=== PATIENT | male | born 2000 | race Caucasian/White ===

== ENCOUNTER 2020-08-09 13:05 | Emergency (ER) | payer OTHER, SELFPAY ==
--- NOTE | 2020-08-09 13:20 | ED.SKABFB ---
HPI - Skin/Abscess/Foreign Bdy General Chief complaint: Skin/Abscess/Foreign Body Stated complaint: rash Time Seen by Provider: 08/09/20 13:20 Source: patient Mode of arrival: ambulatory Limitations: no limitations History of Present Illness HPI narrative: Patient is a 20-year-old male who presents complaining of rash to waistband x3 days. Patient reports rash is not itchy or painful. He also has expresses concern of athletes feet to bilateral feet x1 to 2 weeks. He reports that he has not used any new soaps, shampoos, or detergents. He denies fever, cough, or cold-like symptoms. He denies using [id number] topical creams for relief at this time. MD complaint: rash Related Data Allergies Allergy/AdvReac Type Severity Reaction Status Date / Time sulfamethoxazole Allergy Unknown Verified 08/09/20 13:22 trimethoprim Allergy Unknown Verified 08/09/20 13:22 Review of Systems Review of Systems: Narrative: CONSTITUTIONAL: Denies fever, chills, or sweats. EYES: Denies visual changes, redness, or discharge. ENT: Denies rhinorrhea, congestion, sore throat, or otalgia. CARDIOVASCULAR: Denies chest pain, palpitations, or edema. RESPIRATORY: Denies cough or dyspnea. GASTROINTESTINAL: Denies abdominal pain, nausea, vomiting, or diarrhea. GENITOURINARY: Denies dysuria or hematuria. SKIN: Rash to abdomen and feet MUSCULOSKELETAL: Denies back pain, joint pain, or myalgia. NEUROLOGIC: Denies headache, numbness, dizziness, or weakness. PSYCHIATRIC: Denies anxiety or depression. [facility] Past Medical History Medical History Asthma Surgical History Surgical History (Updated 11/01/19 @ 00:45 by Clarisse Reeves MD) History of tonsillectomy Family History Family History Mother Patient's mother is in good health Father Patient's father is in good health Social History Social History Smoking packs per day: 0.25 Smoking cigarettes per day: 5.0 Smoking status: Current every day smoker Alcohol intake: never Gender identity (if verbalized by the patient): Male Exam Narrative: Exam Narrative: GENERAL: Well-appearing, well-nourished, and in no acute distress. HEAD: Normocephalic, atraumatic. EYES: EOMI. No redness or drainage. Conjunctiva are normal. ENT: Mucous membranes pink and moist. CHEST: No respiratory distress. Clear to auscultation. HEART: Regular rate and rhythm. No murmur appreciated. Normal peripheral pulses. EXTREMITIES: Normal range of motion. No edema. SKIN: Multiple erythematous macules and papules to lower abdomen, 2 areas with honey crusted lesions. Erythematous erosions between multiple toes, pruritic vesicles on bilateral feet NEURO: No focal deficits. Alert and oriented x3. Gait steady. PSYCH: Normal affect. No signs of depression or anxiety. MDM - Skin/Abscess/Foreign Bdy MDM Narrative Medical decision making narrative: Patient to be treated for impetigo to lower abdomen, also tinea pedis on bilateral feet. Discussed with patient good hygiene as well as topical treatments. Patient is stable for discharge to home with outpatient follow-up as needed. Differential Diagnosis Differential diagnosis: Likely impetigo and contact dermatitis Critical Care Time Critical Care Time Critical Care Time: No Discharge Plan Discharge Clinical Impression: Impetigo Tinea pedis Qualifiers: Laterality: bilateral Qualified Code(s): B35.3 - Tinea pedis Patient Disposition: Home, Self-Care Condition: Stable Instructions: Impetigo (ED), Athlete's Foot (ED) Additional Instructions: Wash and thouroughly dry feet, use clean socks frequently. Keep area of rash to waist clean and dry as well before applying cream. Follow up with your PCP as needed. Prescriptions: New mupirocin 2 % ointment 1 applic TOPICAL TID Qty: 22 RF:
[2020-08-09 13:29] VITALS: BP 125/75; PULSE 80; RESP 18; TEMP 36.9; O2SAT 100
== END 2020-08-09 13:38 | disposition home or self-care (01) ==
PROVIDERS: Emergency Provider Nurse Practitioner
DX: L01.00 Impetigo, unspecified (principal); B35.3 Tinea pedis; F17.210 Nicotine dependence, cigarettes, uncomplicated; J45.909 Unspecified asthma, uncomplicated
CPT/HCPCS: 99213; G0463

== ENCOUNTER 2022-10-14 09:04 | Emergency (ER) | payer OTHER, SELFPAY ==
[2022-10-14 09:16] VITALS: BP 132/86; PULSE 90; RESP 16; TEMP 36.8; O2SAT 100
--- NOTE | 2022-10-14 09:20 | ED.URI ---
HPI - URI/Sore Throat General Chief Complaint: Upper Respiratory Infection Stated Complaint: loss of voice, soreness in chest, cough Time Seen by Provider: 10/14/22 09:20 Source: patient Mode of arrival: ambulatory Limitations: no limitations History of Present Illness HPI Narrative: 22-year-old male presents with complaint of nasal congestion, postnasal drainage, cough hoarse voice for 4 days. Afebrile. Denies chest pain shortness of breath. Reports that he had COVID exposure to family at [facility]. Denies nausea vomiting diarrhea. All systems reviewed and negative except as noted above. Related Data Home Medications Medication Instructions Recorded Confirmed albuterol 90 mcg/actuation aerosol 90 mcg inhalation Q4H PRN 04/20/22 10/14/22 inhaler Shortness Of Breath Allergies Allergy/AdvReac Type Severity Reaction Status Date / Time sulfamethoxazole Allergy Unknown Unknown Verified 10/14/22 09:15 trimethoprim Allergy Unknown Unknown Verified 10/14/22 09:15 Review of Systems Review of Systems: CONSTITUTIONAL: Denies fever, chills, or sweats. Reports fatigue. EYES: Denies visual changes, redness, or discharge. ENT: Reports rhinorrhea, congestion, sore throat. Denies otalgia. CARDIOVASCULAR: Denies chest pain, palpitations, or edema. RESPIRATORY: Reports cough. Denies dyspnea. GASTROINTESTINAL: Denies abdominal pain, nausea, vomiting, or diarrhea. GENITOURINARY: Denies dysuria or hematuria. SKIN: Denies rash or itching. MUSCULOSKELETAL: Denies back pain, joint pain, or myalgia. NEUROLOGIC: Denies headache, numbness, or weakness. PSYCHIATRIC: Denies anxiety or depression. All other systems reviewed are negative, except as documented in HPI. [facility] Past Medical History Medical History (Updated 10/14/22 @ 09:37 by Jory Nassar NP) Asthma Surgical History Surgical History (Updated 11/01/19 @ 00:45 by Clarisse Reeves MD) History of tonsillectomy Family History Family History Mother Patient's mother is in good health Father Patient's father is in good health Social History Social History Smoking packs per day: 0.25 Smoking cigarettes per day: 5.0 Smoking status: Current every day smoker Alcohol intake: never Gender identity (if verbalized by the patient): Male Comments At time of signature, agree with nursing past medical, surgical, social and family history. There is no relevant family history pertinent to the presenting complaint. Exam Narrative: GENERAL: This is a well-nourished, well-developed patient, in no apparent distress. HEAD: normocephalic, atraumatic. EYES: PERRL. Sclera clear/white. Vision is grossly intact. EARS: External ears normal, auditory canals clear and without drainage, TMs normal without perforation. Hearing grossly intact. NOSE: External nose normal with clear nasal drainage, erythema to both nares. THROAT: Mucous membranes moist, erythema to posterior pharynx with clear postnasal drainage. NECK: Neck supple, non-tender without lymphadenopathy, masses or thyromegaly. CARDIOVASCULAR: Regular rate and rhythm without murmurs, gallops, or rubs. RESPIRATORY: Clear to auscultation. Breath sounds equal bilaterally. No wheezes, rales, or rhonchi. SKIN: warm, Dry, intact with no suspicious lesions or rash, good texture and turgor. NEURO: awake, alert, and oriented to person, place and time. There were no obvious focal neurologic abnormalities. EXTREMITIES: No joint tenderness, effusion, or edema noted. Course Course Level of Care: Express Care Visit Vital Signs Vital signs: Vital Signs Temperature 36.8 C 10/14/22 09:16 Pulse Rate 90 10/14/22 09:16 Respiratory Rate 16 10/14/22 09:16 Blood Pressure 132/86 10/14/22 09:16 Pulse Oximetry 100 10/14/22 09:16 Oxygen Delivery Room Air 10/14/22 09:16 Temperature
== END 2022-10-14 09:40 | disposition home or self-care (01) ==
PROVIDERS: Emergency Provider Nurse Practitioner Family
DX: U07.1 COVID-19 (principal); J45.909 Unspecified asthma, uncomplicated; F17.210 Nicotine dependence, cigarettes, uncomplicated
CPT/HCPCS: 87426; 99213; C9803; G0463

== ENCOUNTER 2023-01-27 10:51 | Emergency (ER) | payer OTHER, SELFPAY ==
--- NOTE | 2023-01-27 10:57 | ED.URI ---
HPI - URI/Sore Throat General Chief Complaint: Upper Respiratory Infection Stated Complaint: sinus drainage,cough Time Seen by Provider: 01/27/23 10:57 Source: patient and RN notes reviewed History of Present Illness HPI Narrative: Patient is a 22-year-old male who presents to urgent care with complaints of sinus drainage and coughing up blood. Patient states he noticed specks of blood in his mucus this morning. Patient has been having the cough and mucus production since last and decided to go on a bachelor [employer] for the weekend. Patient states that today he had another episode of blood in the cough. Denies any upper respiratory complaints. Denies of sore throat, ear pain, shortness of breath. Patient does have a history of asthma but states his symptoms have not led him to use an inhaler. Denies any fever, nausea, vomiting abdominal discomfort. No other acute complaints. No acute distress noted. Patient aware of the plan of care. Some parts of this dictation were generated by voice recognition software and may contain typographical and/or grammatical inaccuracies. Related Data Home Medications Medication Instructions Recorded Confirmed albuterol 90 mcg/actuation aerosol 90 mcg inhalation Q4H PRN 04/20/22 01/27/23 inhaler Shortness Of Breath Allergies Allergy/AdvReac Type Severity Reaction Status Date / Time sulfamethoxazole Allergy Unknown Unknown Verified 01/27/23 10:57 trimethoprim Allergy Unknown Unknown Verified 01/27/23 10:57 Review of Systems Review of Systems: CONSTITUTIONAL: Denies fever, chills, or sweats. EYES: Denies visual changes, redness, or discharge. ENT: Denies rhinorrhea, congestion, sore throat, or otalgia. Reports postnasal drainage CARDIOVASCULAR: Denies chest pain, palpitations, or edema. RESPIRATORY: Reports of cough and blood in the mucus GASTROINTESTINAL: Denies abdominal pain, nausea, vomiting, or diarrhea. GENITOURINARY: Denies dysuria or hematuria. SKIN: Denies rash or itching. MUSCULOSKELETAL: Denies back pain, joint pain, or myalgia. NEUROLOGIC: Denies headache, numbness, or weakness. All other systems reviewed are negative, except as documented in HPI. [facility] Past Medical History Medical History (Updated 01/27/23 @ 11:18 by GUILLAUME Butt) Asthma Surgical History Surgical History History of tonsillectomy Family History Family History Mother Patient's mother is in good health Father Patient's father is in good health Social History Social History (Updated 10/25/22 @ 13:25 by Kori Dey MA) Smoking packs per day: 0.5 Smoking cigarettes per day: 10.0 Years smoked: 5 Smoking pack-years: 2.50 Smoking status: Former smoker Tobacco type: cigarettes Smoking end date: 08/25/22 Alcohol intake: never Substance use type: does not use Gender identity (if verbalized by the patient): Male Comments At the time of my signature, I reviewed and agree with the nursing past medical, surgical, social, and family history. There is no relevant family history pertinent to the patient complaint. Exam Narrative: GENERAL: This is a well-nourished, well-developed patient, in no apparent distress. HEAD: normocephalic, atraumatic. EYES: PERRL. Sclera clear/white. Vision is grossly intact. EARS: External ears normal, auditory canals clear and without drainage, TMs normal without perforation. Hearing grossly intact. NOSE: External nose normal with no obvious nasal discharge, nares without redness, no rhinorrhea. THROAT: Mucous membranes moist, posterior pharynx clear. Mild postnasal drainage NECK: Neck supple, non-tender without lymphadenopathy, masses or thyromegaly. CARDIOVASCULAR: Regular rate and rhythm RESPIRATORY: Clear to auscultation. Breath sounds equal bilaterally. No wheezes, rales, or rhonchi. SKIN: warm, intact wit
[2023-01-27 10:58] VITALS: BP 129/85; PULSE 82; RESP 16; TEMP 36.4; O2SAT 100
== END 2023-01-27 11:28 | disposition home or self-care (01) ==
PROVIDERS: Emergency Provider Nurse Practitioner Family
DX: R05.9 Cough, unspecified (principal); J45.909 Unspecified asthma, uncomplicated; Z87.891 Personal history of nicotine dependence
CPT/HCPCS: 99213; G0463

== ENCOUNTER 2023-04-15 14:28 | Emergency (ER) | payer OTHER, SELFPAY ==
[2023-04-15 14:35] VITALS: BP 147/81; PULSE 88; RESP 18; TEMP 37; O2SAT 99
--- NOTE | 2023-04-15 14:42 | ED.GENADULT ---
HPI - General Adult General Chief complaint: Skin/Abscess/Foreign Body Stated complaint: RASH Time Seen by Provider: 04/15/23 14:42 Source: patient Mode of arrival: ambulatory Limitations: no limitations History of Present Illness HPI narrative: 22 year old male presents to express care with complaints of rash to his bilateral arms which he first noticed on Tuesday that has spread to his abdomen and right flank area. 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 He reports that he has been taking Benadryl for the itching and spraying some topical medication for the itching also. Patient is concerned since he is leaving for [place] in a couple days. Patient denies any difficulty with swallowing or with his breathing does have history of asthma. MD complaint: rash to bilateral arms and spreading to abdomen and right flank Onset (ago): day(s) (6 days) Treatments prior to arrival: other (Benadryl and topical spray for itch) Related Data Allergies Allergy/AdvReac Type Severity Reaction Status Date / Time sulfamethoxazole Allergy Unknown Unknown Verified 04/15/23 14:38 trimethoprim Allergy Unknown Unknown Verified 04/15/23 14:38 Review of Systems Review of Systems: CONSTITUTIONAL: Denies fever, chills, or sweats. CARDIOVASCULAR: Denies chest pain, palpitations, or edema. RESPIRATORY: Denies cough or dyspnea. SKIN: Reports red raised spreading rash to bilateral forearms abdomen and right flank is itchy for the past 6 days MUSCULOSKELETAL: Denies joint pain or myalgia. NEUROLOGIC: Denies headache, numbness, or weakness. All systems reviewed & are unremarkable except as noted in HPI and below PMFSH Past Medical History Medical History Asthma Concussion Fracture of left hand Fracture, ribs Surgical History Surgical History History of tonsillectomy Family History Family History Mother Patient's mother is in good health Father Patient's father is in good health Social History Social History Smoking packs per day: 0.5 Smoking cigarettes per day: 10.0 Years smoked: 5 Smoking pack-years: 2.50 Smoking status: Former smoker Tobacco type: cigarettes Smoking end date: 08/25/22 Alcohol intake: never Substance use type: does not use Gender identity (if verbalized by the patient): Male Comments At time of signature, agree with nursing past medical, surgical, social and family history. There is no relevant family history pertinent to the presenting complaint Exam Narrative: GENERAL: Well-appearing, well-nourished, and in no acute distress. HEAD: Normocephalic, atraumatic. EYES: PERRLA, conjunctivae clear, and EOMI. ENT: Mucous membranes moist. Oropharynx without edema, erythema or lesions. NECK: Supple. No lymphadenopathy CHEST: Clear to auscultation. No respiratory distress.SAO2 99% on room air HEART: Regular rate and rhythm. SKIN: Warm, dry.? Patches of red raised rash to bilateral forearms abdomen and right flank region some vesicles noted is itchy NEURO:? Alert and oriented x3. PSYCH: Normal mood and affect Course Course Emergency Course: Patient is aware of diagnosis, understands and agrees to treatment plan.? Anticipatory guidance given.? Patient agrees to follow-up as directed and is aware of reasons to seek care at the emergency department. Portions of this record may have been created with voice recognition software Level of Care: Express Care Visit Vital Signs Vital signs: Vital Signs Temperature 37.0 C 04/15/23 14:35 Pulse Rate 88 04/15/23 14:35 Respiratory Rate 18 04/15/23 14:35 Blood Pressure 147/81 H 04/15/23 14:35 Pulse Oximetry 99 04/15/23 14:35 Oxygen Delivery Room A
== END 2023-04-15 15:00 | disposition home or self-care (01) ==
PROVIDERS: Emergency Provider Registered Nurse
DX: L25.5 Unspecified contact dermatitis due to plants, except food (principal); Z87.891 Personal history of nicotine dependence; J45.909 Unspecified asthma, uncomplicated
CPT/HCPCS: 99213; G0463

== ENCOUNTER 2023-06-14 14:56 | Outpatient (CLI) | payer OTHER, SELFPAY ==
[2023-06-14 18:59] LABS: Alanine Aminotransferase 18 U/L (6-50); Albumin Level 4.8 g/dL (3.5-5.1); Alkaline Phosphatase 42 U/L (38-126); Anion Gap 7 mmol/L (8-16); Aspartate Amino Transferase 40 U/L (17-59); Bilirubin,Total 1.2 mg/dL (0.2-1.3); Blood Urea Nitrogen 16 mg/dL (9-20); Calcium 9.5 mg/dL (8.4-10.2); Carbon Dioxide 30 mmol/L (22-30); Chloride 101 mmol/L (98-107); Estimated Glomerular Filt Rate > 60; Glucose 83 mg/dL (65-110); Potassium 4.1 mmol/L (3.4-5.0); Sodium 138 mmol/L (137-145)
== END 2023-06-14 14:57 | disposition home or self-care (01) ==
LOC: ANHGOSHLAB 14:57
PROVIDERS: PCP Family Medicine; Visit Provider Nurse Practitioner
DX: R19.7 Diarrhea, unspecified (principal)
CPT/HCPCS: 36415; 80053